=== PATIENT | male | born 1985 | race African-American/Black ===

== ENCOUNTER 2016-10-09 08:40 | Emergency (ER) | payer OTHER ==
[2016-10-09 08:48] VITALS: BP 133/73
--- NOTE | 2016-10-09 10:19 | ERNOTE ---
Date of Service: 10/09/16 Time Seen by Provider: 10/09/16 10:11 Stated Complaint: COUGH Source: patient Exam Limitations: no limitations Immunizations: IMMUNIZATION HX Immunizations Up to Date Yes History of Influenza Vaccine No Hx Pneumococcal Vaccination No Allergies/Adverse Reactions: Allergies No Known Allergies Allergy (Verified 10/09/16 08:48) Home Medications: HOME MEDICATIONS Albuterol Sulfate [Ventolin Hfa] 2 puff IH Q4H PRN #1 inhaler 10/09/16 [Last Taken Unknown] Guaifen/Dextromethorphan/PE [Robitussin Cough-Cold Cf Liq] 10 ml PO QID #1 liquid 10/09/16 [Last Taken Unknown] Loratadine [Claritin] 10 mg PO DAILY #30 tab 10/09/16 [Last Taken Unknown] - History of Present Ilness Narrative: Pt. comes in with c/o cough, sore throat, and sinus congestion for three days. Pt. states taht he develops SOB when he lays flat due to increased cough. Pt. also states that he has malaise, aches, and chills. Modifying Factors - Improves: Reports: nothing Prior Treatment: Reports: other - denies Review of Systems - Review of Systems Constitutional: Present: no symptoms reported. Absent: fever, chills, weakness , fatigue EYE: Present: no symptoms reported ENT: Present: nose congestion, sore throat Respiratory: Present: shortness of breath, cough. Absent: wheezing Cardiology: Present: no symptoms reported. Absent: chest pain, palpitations, edema Gastrointestinal/Abdominal: Present: no symptoms reported. Absent: nausea, vomiting, diarrhea Genitourinary: Present: no symptoms reported Musculoskeletal: Present: no symptoms reported. Absent: back pain, joint pain Skin: Present: no symptoms reported Neurological: Present: no symptoms reported. Absent: headache, dizziness/light- headedness, numbness, tingling All Other Systems: All systems neg except as marked - Patient's Past Medical History Patient History - Medical: No pertinent hx Patient History - Cardiac/Respiratory: No pertinent hx Patient History - Cancer: No Hx of Cancer Patient History - Surgical Procedures: No surgical history Patient History - Other: None - Family History Father Family History - Medical: History Unknown Mother Family History - Medical: No pertinent hx - Social History Living Situations: home Abuse History: No History of abuse Psych History: No pertinent hx Smoking Status: Current every day smoker Have you smoked in the past 12 months: Yes Alcohol Use: none Drug Use: none - Immunizations Immunizations Up to Date: Yes Hx Pneumococcal Vaccination: No History of Influenza Vaccine: No Physical Exam - Physical Exam General Appearance: Present: wd/wn, alert, no apparent distress Eye Exam: Normal inspection: bilateral, PERRL: bilateral, EOMI: bilateral Ears, Nose, Throat: Present: normal except -, nasal congestion, sinus pain/ drainage, pharyngeal erythema. Absent: abnormal TM (R), abnormal TM (L) Neck: Present: normal inspection, nontender. Absent: lymphadenopathy (R), lymphadenopathy (L) Respiratory: Present: no respiratory distress, normal breath sounds, no accessory muscle use, chest nontender, lungs clear. Absent: rales, rhonchi, wheezing Cardiovascular/Chest: Present: regular rate, rhythm, no murmur, normal peripheral pulses Gastrointestinal/Abdominal: Present: normal bowel sounds, nontender, nondistended, soft, no organomegaly Back Exam: Present: normal inspection, normal range of motion, no CVA tenderness , no vertebral tenderness Extremity Exam: Present: normal inspection, non-tender, normal range of motion, no edema Skin Exam: Present: normal color, warm/dry. Absent: pallor, skin rash ED Progress - Results and Orders Patient's Lab Results:: I have reviewed the patient's lab results. - Vital Signs Patient's Vital Signs:: I have reviewed the patient's vital signs. Vital Signs: Vital Signs 10/09/16 08:44 Temperature 36.0 C L Pulse Rate 89 Respiratory 16 Rate Blood Pressure 133/73 O2 Sat by Pulse 97 Oximetry - X-Ray X-Ray #1 X-Ray: chest Interpretation: Reviewed by me X-ray Comments: bronchial cuffing - Progress/Reassessment Chief Complaint: Cough Departure - Departure Clinical Impression: Bronchitis, acute Qualifiers: Bronchitis organism: other organism Qualified Code(s): J20.8 - Acute bronchitis due to other specified organisms Allergic rhinitis Qualifiers: Allergic rhinitis trigger: other Allergic rhinitis seasonality: seasonal Qualified Code(s): J30.89 - Other allergic rhinitis Disposition: Home self-care Condition: Good Instructions: Allergic Rhinitis, Acute Bronchitis, [id number] Additional Instructions: Please stop smoking, take claritin daily, and take albuterol and guaifenisin for cough. Prescriptions: Albuterol Sulfate [Ventolin Hfa] 2 puff IH Q4H PRN #1 inhaler PRN Reason: Shortness Of Breath Guaifen/Dextromethorphan/PE [Robitussin Cough-Cold Cf Liq] 10 ml PO QID #1 liquid Loratadine [Claritin] 10 mg PO DAILY #30 tab
== END 2016-10-09 10:47 | disposition home or self-care (01) ==
LOC: ER 08:40
DX: J20.8 Acute bronchitis due to other specified organisms (principal); J30.89 Other allergic rhinitis; Z72.0 Tobacco use